=== PATIENT | female | born 1980 | race Two or more races ===

== ENCOUNTER 2021-10-27 04:30 | Inpatient (IN) | payer SELFPAY ==
[~2021-10-27] VITALS: Ht 162.6 cm; Wt 65.3 kg
[2021-10-27 05:31] LABS: EOSINOPHILS % 2.3 % (0.0-5.0); HEMATOCRIT. 42.1 % (36.0-48.0); HEMOGLOBIN. 13.9 g/dL (12.0-16.0); LYMPHOCYTES % 65.2 % (20.0-50.0); MEAN CORPUSCULAR HEMOGLOBIN 30.7 pg (28.0-32.0); MEAN CORPUSCULAR VOLUME 92.8 fL (81.0-99.0); MEAN PLATELET VOLUME 8.4 fl (7.4-10.4); MONOCYTES % 8.3 % (2.0-8.0); NEUTROPHILS % 23.2 % (40.0-76.0); PLATELET 226 x1000/uL (130-400); RED BLOOD CELL COUNT 4.53 mill/uL (4.2-5.4); RED CELL DISTRIBUTION WIDTH 18.3 % (11.6-14.6)
[2021-10-27 05:40] LABS: CHLORIDE 109 mEq/L (98-107)
[2021-10-27 05:41] LABS: HCG SCREEN NEGATIVE
[2021-10-27] MEDS ORDERED: CLONIDINE 0.1MG TABLET PO PRN (07:15)
[2021-10-27] MEDS ORDERED: GUAIFENESIN 200MG/10ML SUGAR FREE UDC PO PRN (07:15)
[2021-10-27] MEDS ORDERED: IPRATROPIUM/ALBUTEROL 0.5-3(2.5)MG/3ML NEB NEB PRN (07:15)
[2021-10-27] MEDS ORDERED: MAGNESIUM/ALUMINUM HYDROXIDE/SIMETHICONE 30ML UDC PO PRN (07:15)
[2021-10-27] MEDS ORDERED: NITROGLYCERIN 0.4MG TABLET SL SL PRN (07:15)
[2021-10-27] MEDS ORDERED: POTASSIUM CHLORIDE 20MEQ TABLET SR PO NR (07:15)
[2021-10-27] MEDS ORDERED: ONDANSETRON HCL 4MG/2ML INJ IV PRN (07:15)
[2021-10-27] MEDS ORDERED: ZOLPIDEM TARTRATE 5MG TABLET PO PRN (07:15)
[2021-10-27] MEDS ORDERED: ACETAMINOPHEN 325MG TABLET PO PRN ×2 (07:15)
[2021-10-27] MEDS ORDERED: DOCUSATE SODIUM 100MG CAPSULE PO PRN (07:15)
[2021-10-27] MEDS ORDERED: KETOROLAC 15MG/ML VIAL IV PRN ×2 (07:15→21:00)
[2021-10-27 07:41] LABS: FOLIC ACID (FOLATE) SERUM 4.1 ng/mL (>5.38)
[2021-10-27] MEDS: ENOXAPARIN 40MG/0.4ML SYR SUBCUT SCH (08:10)
[2021-10-27] MEDS: FAMOTIDINE 20MG TABLET PO SCH ×2 (08:11→21:42)
[2021-10-27] MEDS: ASPIRIN 325MG EC TABLET PO SCH (08:11)
[2021-10-27] MEDS ORDERED: FOLIC ACID 1 MG, THIAMINE HCL 100 MG, MVI, ADULT NO.1 10 ML in DEXTROSE 5% WATER 1,000 ML IV NR ×4 (12:30)
[2021-10-27 15:49] VITALS: BP 114/70
[2021-10-27 16:00] VITALS: BP 114/70
[2021-10-27 20:00] VITALS: BP 131/81
[2021-10-27 23:01] LABS: CREATINE KINASE 49 IU/L (26-192); T4 FREE 0.76 ng/dL (0.76-1.46)
[2021-10-27 23:03] LABS: CREATINE KINASE MB FRACTION < 1.0 ng/mL (0.5-3.6)
[2021-10-28] VITALS: BP 110/69
[2021-10-28 02:34] LABS: CREATINE KINASE 43 IU/L (26-192)
[2021-10-28 02:35] LABS: CREATINE KINASE MB FRACTION < 1.0 ng/mL (0.5-3.6)
[2021-10-28 04:00] VITALS: BP 108/66
[2021-10-28 06:48] LABS: CHLORIDE 110 mEq/L (98-107)
[2021-10-28 06:52] LABS: PHOSPHORUS 2.9 mg/dL (2.5-4.9)
[2021-10-28 06:54] LABS: BASOPHILS % 0.6 % (0.0-2.0); EOSINOPHILS % 2.8 % (0.0-5.0); HEMATOCRIT. 34.8 % (36.0-48.0); HEMOGLOBIN. 11.5 g/dL (12.0-16.0); LYMPHOCYTES % 44.1 % (20.0-50.0); MEAN CORPUSCULAR HEMOGLOBIN 31.1 pg (28.0-32.0); MEAN CORPUSCULAR VOLUME 93.7 fL (81.0-99.0); MEAN PLATELET VOLUME 9.1 fl (7.4-10.4); MONOCYTES % 9.5 % (2.0-8.0); PLATELET 169 x1000/uL (130-400); RED BLOOD CELL COUNT 3.71 mill/uL (4.2-5.4); RED CELL DISTRIBUTION WIDTH 18.8 % (11.6-14.6)
[2021-10-28 07:14] LABS: *BENZODIAZEPINES SCREEN URINE NEGATIVE (NEGATIVE); *COCAINE SCREEN URINE NEGATIVE (NEGATIVE); METHADONE URINE SCREEN NEGATIVE (NEGATIVE); OPIATES URINE SCREEN NEGATIVE (NEGATIVE)
[2021-10-28 07:15] LABS: *AMPHETAMINES SCREEN URINE NEGATIVE (NEGATIVE); *BARBITURATES SCREEN URINE NEGATIVE (NEGATIVE); CANNABINOID URINE SCREEN NEGATIVE (NEGATIVE); PHENCYCLIDINE URINE SCREEN NEGATIVE (NEGATIVE)
[2021-10-28 08:26] VITALS: BP 106/75
[2021-10-28] MEDS: ENOXAPARIN 40MG/0.4ML SYR SUBCUT SCH (08:37)
[2021-10-28] MEDS: ASPIRIN 325MG EC TABLET PO SCH (08:37)
[2021-10-28] MEDS: FAMOTIDINE 20MG TABLET PO SCH ×2 (08:37→21:32)
[2021-10-28 11:46] VITALS: BP 112/77
[2021-10-28] MEDS: FOLIC ACID 1MG TABLET PO SCH (14:35)
[2021-10-28 15:51] VITALS: BP 117/73
[2021-10-28 20:00] VITALS: BP 111/69
[2021-10-29] VITALS: BP 110/68
[2021-10-29 04:00] VITALS: BP 111/63
[2021-10-29 08:00] VITALS: BP 121/82
[2021-10-29] MEDS: ASPIRIN 325MG EC TABLET PO SCH (08:33)
[2021-10-29] MEDS: FOLIC ACID 1MG TABLET PO SCH (08:33)
[2021-10-29] MEDS: FAMOTIDINE 20MG TABLET PO SCH (08:33)
[2021-10-29] MEDS: ENOXAPARIN 40MG/0.4ML SYR SUBCUT SCH (08:34)
[2021-10-29 11:10] VITALS: BP 121/82
== END 2021-10-29 12:20 | disposition home or self-care (01) | DRG 203 ==
LOC: ER 04:30 → 5WST 06:38
PROVIDERS: ADMIT Internal Medicine; ATTEND Internal Medicine
DX: M94.0 Chondrocostal junction syndrome [Tietze] (principal); D52.9 Folate deficiency anemia, unspecified; E88.09 Other disorders of plasma-protein metabolism, not elsewhere classified; E87.6 Hypokalemia; F10.229 Alcohol dependence with intoxication, unspecified; Z20.822 Contact with and (suspected) exposure to COVID-19
CPT/HCPCS: 36415; 71045; 80053; 80061; 80305; 80320; 82550; 82553; 82607; 82746; 83036; 83540; 83550; 83735; 83880; 84100; 84439; 84443; 84484; 84703; 85025; 85379; 87426; 93005; 93306; 93970; 99285; C9803; J1650; J3411; J3490; J7070; U0003; U0005; G0480